=== PATIENT | female | born 1950 | race Caucasian/White ===

== ENCOUNTER 2019-02-07 07:29 | Day surgery (SDC) | payer MEDICARE, OTHER ==
[~2019-02-07] VITALS: Ht 157.5 cm; Wt 146.1 kg
[~2019-02-07 07:29] MED LIST: JANUVIA100 MG PO; K-TAB ER20 MEQ PO; LASIX20 MG PO; LINZESS290 MCG PO; LIPITOR10 MG; LIPITOR10 MG PO; METFORMIN HCL500 MG PO; NEURONTIN300 MG PO; PRINIVIL20 MG PO; TRULICITY0.75 MG/0. SQ; ULTRAM50 MG PO; VENTOLIN HFA18 GM INH
[2019-02-07] MEDS ORDERED: ASPIR-LOW81 MG PO (07:47)
[2019-02-07] MEDS ORDERED: K-TAB ER20 MEQ PO (07:48)
[2019-02-07] MEDS ORDERED: JANUVIA100 MG PO (07:49)
[2019-02-07] MEDS ORDERED: TRULICITY0.75 MG/0. (07:51)
--- NOTE | 2019-02-07 11:37 | NUR ---
02/07/19 1137 Sabina Darden 1113- PT ARRIVES TO PACU ALERT. PT REPORTS NO PAIN OR NAUSEA AT THIS TIME. RESP EVEN AND UNLABORED. 1116- PT IS ABLE TO TURN HERSELF TO HER BACK. PT REPORTS HER ABD IS TENDER TO PALPATION. ENCOURAGED PT TO PASS FLATUS IN ORDER TO HELP WITH THE PAIN. PT STATES UNDERSTANDING. 1118- PT SITTING UP IN BED DRINKING ICE WATER. TOLERATING WELL. 1121- DR. CARRILLO AT THE BEDSIDE TO TALK WITH THE PT. 1127- PT IS SITTING ON THE EDGE OF THE BED. PT REPORTS SOME DIZZINESS THAT IS GOING AWAY SHE SITS THERE. PT REPORTS NO NAUSEA, RATES PAIN A 03/21. 1129- PT ASSISTED A WHEELCHAIR AND TAKEN TO THE RESTROOM TO ATTEMPT TO PASS FLATUS. PT HAS OSTEOARTHRITIS AND USES BILATERAL CANES TO GET AROUND DAILY.
--- NOTE | 2019-02-08 10:33 | OR ---
[facility] [address], [place] [address] Signed DATE OF OPERATION: 02/07/2019 SURGEON: Vee Carrillo MD PREOPERATIVE DIAGNOSIS: Persistent progressive constipation. POSTOPERATIVE DIAGNOSIS: Sigmoid and left-sided diverticular changes. No polyps or cancer. PROCEDURE PERFORMED: Total colonoscopy to cecum. ANESTHESIA: Intravenous sedation, fentanyl 200 mcg and Versed 6 mg. INDICATION: This morbidly obese 69-year-old white woman is a patient of Dr. Jesus Moses in [place], [place]. She last underwent colonoscopy in [place] about 9 years ago. She has had constipation problems since June. This has become more progressive to her. She has tried various methods to maintain normal bowel function, which has been unsuccessful. She is admitted to undergo colonoscopy to assess that there is no other lesion accounting for this problem. Risks of bleeding, infection, and perforation were reviewed with her. She understands and wished to proceed. FINDINGS: The prep was good. Complete colonoscopy was undertaken to the cecum. Though the colon was quite long and large and was challenging, but was accomplished safely. There were numerous diverticula of the sigmoid and left colon. No sign of polyps. No sign of stricture or obstructive process. DESCRIPTION OF PROCEDURE: The patient was brought to endoscopy suite and placed in lateral decubitus position, given intravenous sedation to a point of slurred speech and nystagmus. Digital rectal examination was normal. An Olympus video colonoscope was passed in the rectum and manipulated throughout the colon. Diverticula are encountered in the sigmoid, marked distortion, but no stricture was noted. Additional sedation was given as needed. Considerable amount of effort was ultimately exerted to allow for complete evaluation of the colon, but ultimately the Electronically Signed By: VEE CARRILLO MD 02/08/19 1033 PATIENT NAME: ZOË BURCIAGA OPERATIVE REPORT DATE OF : 50 REPORT #: [id number] PHYSICIAN: VEE CARRILLO MD PCP: Jesus Moses DO REPORT IS CONFIDENTIAL AND NOT TO BE RELEASED WITHOUT AUTHORIZATION [facility] [address], [place] [address] Signed cecum was intubated. Irrigation was undertaken as needed and the scope was carefully withdrawn. There was no sign of polyps or colitis. Only diverticular changes of the left side as noted. Retroflexed view of the rectum was normal. Scope was removed and the patient was taken to the recovery room in good condition. CONCLUDING DIAGNOSES: Constipation. A combination of factors likely low-fiber diet, diverticular changes, inactivity, and so on. I would recommend Citrucel one scoop daily with added fluids orally as well as MiraLAX 1 scoop p.o. daily. She has been on Linzess and if it is helpful, she can take it though these other methods may be of benefit to her. Increasing the activity level may be of benefit as well. She will return to the ongoing care of Dr. Moses. MD ISHMAEL Prieto/JASON /[id number] cc: Jesus Moses DO Copies: Jesus Moses DO ~ Electronically Signed By: VEE CARRILLO MD 02/08/19 1033 PATIENT NAME: ZOË BURCIAGA OPERATIVE REPORT DATE OF : 50 REPORT #: [id number] PHYSICIAN: VEE CARRILLO MD PCP: Jesus Moses DO REPORT IS CONFIDENTIAL AND NOT TO BE RELEASED WITHOUT AUTHORIZATION
== END 2019-02-07 11:50 | disposition home or self-care (01) ==
LOC: DS 07:29 → OPS 07:29 → DS 09:00 → OPS 11:50
PROVIDERS: Surgery
PROC: 0DJD8ZZ Inspection of Lower Intestinal Tract, Via Natural or Artificial Opening Endoscopic (ICD-10-PCS; principal; 2019-02-07 09:00)
DX: K59.00 Constipation, unspecified (principal); K57.30 Diverticulosis of large intestine without perforation or abscess without bleeding; I10 Essential (primary) hypertension; E11.9 Type 2 diabetes mellitus without complications; E66.01 Morbid (severe) obesity due to excess calories; Z79.899 Other long term (current) drug therapy; Z79.84 Long term (current) use of oral hypoglycemic drugs
CPT/HCPCS: 99153; G0500; J2250; J3010; J7120

== ENCOUNTER 2019-02-24 14:53 | Emergency (ER) | payer MEDICARE, OTHER ==
[~2019-02-24] VITALS: Ht 157.5 cm; Wt 146.1 kg
--- OUTSIDE RECORDS SUMMARY | ~2019-02-24 | XMS | Clinical Summary ---
Demographics + + + | Address | [address] | | | [place] [address] | + + + | Home Phone | | + + + | Preferred Language | Unknown | + + + | Marital Status | | + + + | Muslim Affiliation | NON | + + + | Race | White | + + + | Ethnic Group | Not or | + + + Author + + + | Author | [facility] | + + + | Organization | [facility] | + + + | Address | Unknown | + + + | Phone | Unavailable | + + + Support + + + + + | Name | Relationship | Address | Phone | + + + + + | AIDA BURCIAGA | ECON | [address] | | | | | [place] [address] | | + + + + + Care Team Providers + +------+ + | Care Supervisor Engine Repair Name | Role | Phone | + +------+ + | Elijah Moses MD | PP | | + +------+ + Source Comments MUNIR is fully live on both [facility] and [facility] InPatient.[facility] Allergies No Known Allergies Current Medications + + + +---------+------+------+-------+ | Prescription | Sig. | Disp. | Refills | Star | End | Statu | | | | | | t | Date | s | | | | | | Date | | | + + + +---------+------+------+-------+ | exenatide (BYETTA) | 2 tab p.o. qd | | | | | Activ | | 10 mcg/0.04 mL | | | | | | e | | Subcutaneous Pen | | | | | | | | Injector | | | | | | | + + + +---------+------+------+-------+ | | take 1 tablet by | | | | | Activ | | ezetimibe-simvastati | oral route once | | | | | e | | n (VYTORIN 10/40) | daily | | | | | | | 10-40 mg Oral Tablet | | | | | | | + + + +---------+------+------+-------+ | docusate sodium | 1 Cap Oral TWICE | 45 | 0 | 09/0 | | Activ | | 100 mg Oral Capsule | DAILY | | | 7/20 | | e | | | | | | 08 | | | + + + +---------+------+------+-------+ | senna 8.6 mg Oral | 1 Tab Oral twice | 30 | 0 | 09/0 | | Activ | | Tablet | daily until stools | | | 7/20 | | e | | | are soft | | | 08 | | | + + + +---------+------+------+-------+ | furosemide (LASIX) | take 1 tablet (20 | 2 | 0 | 09/1 | | Activ | | 20 mg Oral | mg) by oral route | | | 12/01 | | e | | TabletIndications: | once daily for two | | | 08 | | | | Malignant neoplasm | days | | | | | | | of corpus uteri, | | | | | | | | except isthmus | | | | | | | | (HCC), Obesity (BMI | | | | | | | | 30.0-39.9) | | | | | | | + + + +---------+------+------+-------+ | glimepiride 2 mg | take 1 tablet (2 mg) | | | | | Activ | | Oral Tablet | by oral route twice | | | | | e | | | daily | | | | | | + + + +---------+------+------+-------+ | lisinopril 10 mg | take 1 tablet (10 | | | | | Activ | | Oral Tablet | mg) by oral route | | | | | e | | | twice daily | | | | | | + + + +---------+------+------+-------+ | metformin 500 mg | take 2 tablet (500 | | | | | Activ | | Oral Tablet | mg) by oral route 2 | | | | | e | | | times per day with | | | | | | | | morning andevening | | | | | | | | meals | | | | | | + + + +---------+------+------+-------+ | | take 1 tablet by | 60 | 1 | / | | Activ | | hydrocodone-acetamin | oral route every 4-6 | | | 03/01 | | e | | ophen 5-500 mg Oral | hours as needed for | | | 08 | | | | TabletIndications: | pain | | | | | | | Malignant neoplasm | | | | | | | | of corpus uteri, | | | | | | | | except isthmus | | | | | | | | (HCC), Obesity (BMI | | | | | | | | 30.0-39.9) | | | | | | | + + + +---------+------+------+-------+ | nystatin 100,000 | apply by topical | 1 | 1 | / | | Activ | | unit/g Topical | route 2 times per | container | | 03/01 | | e | | Powder | day to the affected | | | 08 | | | | | area(s) | | | | | | + + + +---------+------+------+-------+ | | Take 1 tablet by | 60 | 0 | 11/1 | | Activ | | hydrocodone-acetamin | oral route every 4-6 | | | 8/20 | | e | | ophen (VICODIN) | hours as needed for | | | 08 | | | | 5-500 mg Oral Tablet | pain | | | | | | + + + +---------+------+------+-------+ | ibuprofen 600 mg | Take 1 Tab by mouth | 60 | 1 | 01/2 | | Activ | | Oral | every four hours as | | | 0/20 | | e | | TabletIndications: | needed | | | 09 | | | | Malignant neoplasm | | | | | | | | of corpus uteri, | | | | | | | | except isthmus (HCC) | | | | | | | + + + +---------+------+------+-------+ Active Problems + + + | Problem | Noted Date | + + + | Surgical wound dehiscence | 08/28/2008 | + + + | Intertrigo | 05/19/2008 | + + + | Obesity (BMI 30-39.9) | 05/19/2008 | + + + + + | Overview: ICD10 | + + + + + | Back pain | 05/19/2008 | + + + | Malignant neoplasm of corpus uteri, except isthmus (HCC) | 04/29/2008 | + + + Family History + + +------+ + | Medical History | Relation | Name | Comments | + + +------+ + | Diabetes | Brother | | | + + +------+ + | Diabetes | Brother | | | + + +------+ + | Other | Father | | Parkinson's- 2008 | + + +------+ + | Heart Disease | Maternal | | | | | Grandfath | | | | | er | | | + + +------+ + | Heart Disease | Maternal | | | | | Grandmoth | | | | | er | | | + + +------+ + | Arthritis | Mother | | | + + +------+ + | Cancer | Mother | | multiple myeloma 2006 | + + +------+ + | Heart Disease | Mother | | | + + +------+ + | Hypertension | Mother | | | + + +------+ + | Lipid Disorder | Mother | | | + + +------+ + | Cancer | Other | | maternal great aunt - breast | + + +------+ + + +------+--------+ + | Relation | Name | Status | Comments | + +------+--------+ + | Brother | | | | + +------+--------+ + | Brother | | | | + +------+--------+ + | Father | | | | + +------+--------+ + | Maternal Grandfather | | | | + +------+--------+ + | Maternal Grandmother | | | | + +------+--------+ + | Mother | | | | + +------+--------+ + | Other | | | | + +------+--------+ + Social History + +-------+ +--------+------+ | Tobacco Use | Types | Packs/Day | Years | Date | | | | | Used | | + +-------+ +--------+------+ | Never Smoker | | | | | + +-------+ +--------+------+ + + +---------+ + | Alcohol Use | Drinks/We | oz/Week | Comments | | | ek | | | + + +---------+ + | No | | | | + + +---------+ + + + + | Sex Assigned at | Date Recorded | | | | + + + | Not on file | | + + + Last Filed Vital Signs + + + + | Vital Sign | Reading | Time Taken | + + + + | Blood Pressure | 142/80 | 08/05/2008 9:15 AM PDT | + + + + | Pulse | 79 | 07/19/2008 7:27 AM PDT | + + + + | Temperature | 37.1 C (98.8 F) | 08/05/2008 9:15 AM PDT | + + + + | Respiratory Rate | 18 | 07/19/2008 7:27 AM PDT | + + + + | Oxygen Saturation | 97% | 07/19/2008 5:45 AM PDT | + + + + | Inhaled Oxygen | - | - | | Concentration | | | + + + + | Weight | 159.4 kg (351 lb 6.4 | 08/05/2008 9:15 AM PDT | | | oz) | | + + + + | Height | 172.7 cm (5' 8") | 07/16/2008 6:00 AM PDT | + + + + | Body Mass Index | 53.43 | 08/05/2008 9:15 AM PDT | + + + + Plan of Treatment + + + + + | Health Maintenance | Due Date | Last Done | Comments | + + + + + | Pneumococcal (Adult) | | | | | (1 of 2 - PCV13) | 5 | | | + + + + + | Influenza (Flu) | | | | | vaccination (#1) | 8 | | | + + + + + Results Not on filefrom Last 3 Months Insurance + +--------+ +--------+-------+---------+ | Payer | Benefi | Subscriber | Type | Phone | Address | | | t Plan | ID | | | | | | / | | | | | | | Group | | | | | + +--------+ +--------+-------+---------+ | [employer]ET[employer] DIRECT | [employer] | [id number] | PPO | | | | | DIRECT | | | | | + +--------+ +--------+-------+---------+ | COMMERCIAL | INDIVI | [id number] | Indemn | | | | INDIVIDUAL | DUAL | | ity | | | | | COMMER | | | | | | | CIAL | | | | | + +--------+ +--------+-------+---------+ + +--------+ +--------+ + + | Guarantor Name | Accoun | Relation to | Date | Phone | Billing Address | | | t Type | Patient | of | | | | | | | | | | + +--------+ +--------+ + + | LENNIE BURCIAGA | Person | Self [birth year] Home: | [address] | | | al/Fam | | 1950 | [phone] | [place] [address] | | | yin | | | [phone] | | + +--------+ +--------+ + +
--- OUTSIDE RECORDS SUMMARY | ~2019-02-24 | XMS | Clinical Summary ---
Demographics + + + | Address | [address] | | | [place] [address] | + + + | Home Phone | | + + + | Preferred Language | Unknown | + + + | Marital Status | | + + + | Voodoo Affiliation | NON | + + + [...] + | AIDA BURCIAGA | ECON | [phone] | | | | | [place] [address] | | + + + + + Care Team Providers + +------+ + | Care Accredited Farm Manager Name | Role | Phone | + +------+ + | Elijah Moses MD | PP | | + +------+ + Source Comments MUNIR is fully live on both [facility] and [facility] InPatient.[facility] Allergies No Known Allergies Current Medications + [...] | Self | [birth year] | Home: | [address] | | | al/Fam | | 1950 | [phone] | [place] [address] | | | yin | | | [phone] | | + +--------+ +--------+ + +
[~2019-02-24 14:53] MED LIST changes: +ASPIR-LOW81 MG PO; +TRULICITY0.75 MG/0.
--- NOTE | 2019-02-25 16:55 | EKG ---
[facility] [address] [place], [place] [address] Signed Normal sinus rhythm Low voltage QRS Borderline ECG When compared with ECG of 24-FEB-2019 15:13, (Unconfirmed) No significant change was found Confirmed by COREY RUBIO DO ([id number]) on 02/25/2019 4:55:37 PM Electronically Signed By: COREY RUBIO DO 02/25/19 1655 PATIENT NAME: PATRICAZOË MCDERMOTT Electrocardiogram DATE OF : 50 PHYSICIAN: COREY RUBIO DO REPORT #: [id number] REPORT IS CONFIDENTIAL AND NOT TO BE RELEASED WITHOUT AUTHORIZATION
--- NOTE | 2019-02-25 16:55 | EKG ---
[facility] [address] [facility] [place], [place] [address] Signed Normal sinus rhythm Normal ECG No previous ECGs available Confirmed by COREY RUBIO DO ([id number]) on 02/25/2019 4:55:14 PM Electronically Signed By: COREY RUBIO DO 02/25/19 1655 PATIENT NAME: ZOË BURCIAGA Electrocardiogram DATE OF : 50 PHYSICIAN: COREY RUBIO DO REPORT #: [id number] REPORT IS CONFIDENTIAL AND NOT TO BE RELEASED WITHOUT AUTHORIZATION
== END 2019-02-24 20:23 | disposition short-term general hospital (02) ==
LOC: ED 14:53
DX: R07.89 Other chest pain (principal); R79.89 Other specified abnormal findings of blood chemistry; R51 Headache; E11.65 Type 2 diabetes mellitus with hyperglycemia; Z79.82 Long term (current) use of aspirin; Z79.899 Other long term (current) drug therapy; Z79.84 Long term (current) use of oral hypoglycemic drugs
CPT/HCPCS: 36415; 51701; 70450; 71045; 80053; 81001; 84484; 85025; 85610; 85730; 93005; 93010; 99285-25

== ENCOUNTER 2021-12-08 23:26 | Emergency (ER) | payer MEDICARE, OTHER ==
[~2021-12-08] VITALS: Ht 160 cm; Wt 158.8 kg
--- NOTE | 2021-12-09 13:32 | EKG ---
[facility] [address] [facility] [place], [place] [address] Signed Normal sinus rhythm Nonspecific ST abnormality Abnormal ECG When compared with ECG of 24-FEB-2019 18:43, No significant change was found Confirmed by COREY RUBIO DO ([id number]) on 12/09/2021 1:32:32 PM Electronically Signed By: COREY RUBIO DO 12/09/212 PATIENT NAME: ZOË BURCIAGA JOLIE Electrocardiogram DATE OF : 50 PHYSICIAN: COREY RUBIO DO REPORT #: [id number] REPORT IS CONFIDENTIAL AND NOT TO BE RELEASED WITHOUT AUTHORIZATION
== END 2021-12-09 04:29 | disposition home or self-care (01) ==
LOC: ED 23:26
DX: R07.9 Chest pain, unspecified (principal); R51.9 Headache, unspecified; R25.1 Tremor, unspecified; I10 Essential (primary) hypertension; Z20.822 Contact with and (suspected) exposure to COVID-19; Z79.82 Long term (current) use of aspirin; Z79.84 Long term (current) use of oral hypoglycemic drugs; Z79.899 Other long term (current) drug therapy
CPT/HCPCS: 71045; 80053; 83735; 84443; 84484; 85025; 93005; 93010; 99285-25; A9270; C9803; J7121; U0003